=== PATIENT | female | born 1955 | race Caucasian/White ===

== ENCOUNTER 2019-07-28 08:48 | Emergency (ER) | payer BC ==
[2019-07-28 09:00] VITALS: BMI 30.4
--- NOTE | 2019-07-28 09:25 | PDOC ---
History of Present Illness - General Chief Complaint: Nasal Bleeding Stated Complaint: Nasal Bleeding Time Seen by Provider: 07/28/19 09:12 History Source: Patient Exam Limitations: No Limitations - History of Present Illness Initial Comments: 64 yo F w a hx of HTN and MVP who presents to the [facility] er with a nose bleed since 6 am this morning. cold for the past week. This morning she sneezed and blood started coming out of her left nostril. The patient states the blood has actively been dripping down her left nostril. She has been trying to hold pressure on her nose without much success. She states she has chronic sinus problems and frequently has nose bleeds but none as bad as today. She placed a small amount of afrin on a tissue in her nose which didn't help much. She stopped taking aspirin one month ago and states she does not take any blood thinners. Patient also endorses lightheadedness. She came to the ER to get her bleeding stopped and then she plans on heading straight to Dr. Tabor her ENT doctor. Denies fevers, nausea, vomiting or chills. ENT: Dr. Tabor PSH: None reported Allergies: Penicillins Social hx: Denies any snorting of drugs, other illicit drugs, alcohol or cigarettes. Past History - Past Medical History Allergies/Adverse Reactions: Allergies Allergy/AdvReac Type Severity Reaction Status Date / Time Penicillins Allergy Verified 07/28/19 08:55 Home Medications: Ambulatory Orders Atenolol [Tenormin] 50 mg PO BID 07/28/19 Atorvastatin Calcium [Lipitor] 10 mg PO HS 07/28/19 Levothyroxine [Synthroid -] 125 mcg PO DAILY 07/28/19 Lisinopril [Prinivil] 10 mg PO DAILY 07/28/19 - Psycho Social/Smoking Cessation Hx Smoking History: Never smoked Review of Systems - Review of Systems Able to Perform ROS?: Yes Comments:: CONSTITUTIONAL: Absent: fever, no chills, no fatigue EYES: Absent: visual changes ENT: Present: Nose bleeding Absent: ear pain, no sore throat CARDIOVASCULAR: Absent: chest pain, no palpitations RESPIRATORY: Absent: cough, no SOB GI: Absent: abdominal pain, no nausea, no vomiting, no constipation, no diarrhea GENITOURINARY: Absent: dysuria, no frequency, no hematuria MUSKULOSKELETAL: Absent: back pain, no arthralgia, no myalgia SKIN: Absent: rash NEURO: Absent: headache *Physical Exam - Vital Signs Last Vital Signs Temp Pulse Resp BP Pulse Ox 97.9 F 73 20 140/82 99 07/28/19 08:58 07/28/19 08:58 07/28/19 08:58 07/28/19 08:58 07/28/19 08:58 - Physical Exam Comments: GENERAL: Well-appearing, well-nourished. No apparent distress. NOSE: The left nostril has a slow bleed in the anterior portion on the nasal septum HEET: Normocephalic, atraumatic. PERRL, EOM intact. CARDIOVASCULAR: Normal S1, S2. Regular rate and rhythm. PULMONARY: No evidence of respiratory distress. Lungs clear to auscultation bilaterally. No wheezing, rales or rhonchi. ABDOMEN: Soft, non-distended, non-tender. EXTREMITIES: Normal ROM in all four extremities. No gross deformities. SKIN: Warm, dry. No rash NEUROLOGICAL: No focal neurological deficits. ED Treatment Course - LABORATORY CBC & Chemistry Diagram: 07/28/19 10:00 07/28/19 10:00 Medical Decision Making - Medical Decision Making 64 yo F w a hx of HTN and MVP who presents to the [facility] er with a nose bleed since 6 am this morning. cold for the past week. This morning she sneezed and blood started coming out of her left nostril. The patient states the blood has actively been dripping down her left nostril. She has been trying to hold pressure on her nose without much success. She states she has chronic sinus problems and frequently has nose bleeds but none as bad as today. She placed a small amount of afrin on a tissue in her nose which didn't help much. She stopped taking aspirin one month ago and states she does not take any blood thinners. Patient also endorses lightheadedness. She came to the ER to get her bleeding stopped and then she plans on heading straight to Dr. Tabor her ENT doctor. Vital Signs Temp Pulse Resp BP Pulse Ox 97.3 F L 63 20 122/89 98 07/28/19 10:09 07/28/19 10:09 07/28/19 08:58 07/28/19 10:09 10/04/19 10:09 DDx IBNLT: Nasal bleed - anterior vs posterior, anemia, platelet dysfunction, electrolyte/metabolic disturbance Plan: Labs, anterior packing, nasal pressure, afrin, re-assess. Labs: Patient is not anemic and has normal platelet count - Elevated BUN, giving patient a large jug of water to drink Re-assessment: Afrin applied and bleeding stopped. Dispo: ENT FU today with Dr. Tabor - Patient has an ENT appointment scheduled with Dr. Leander thurston at 1:40 pm Discharge - Discharge Information Problems reviewed: Yes Clinical Impression/Diagnosis: Nosebleed Condition: Improved Disposition: HOME - Admission No - Follow up/Referral Referrals: Katlyn Church [Primary Care Provider] - Eze Tabor MD [Staff Physician] - - Patient Discharge Instructions Patient Printed Discharge Instructions: Nosebleeds (Alternative Therapy), DI for Nosebleed Additional Instructions: Please make sure to go to Dr. Leander hturston in the afternoon at your scheduled appointment at 1:40 pm. Come back to the ER if your bleeding starts again or you have any other new or worsening concerns. Print Language: FAROESE - Post Discharge Activity
[2019-07-28] MEDS ORDERED: OXYMETAZOLINE 0.05% NASAL SOLUTION 15 ML BOTTLE NS ONE (09:35)
[2019-07-28 10:13] LABS: BASO % 1.8 % (0-2.0); EOS % 2.7 % (0-4.5); HEMATOCRIT 33.2 % (32.4-45.2); HEMOGLOBIN 11.3 GM/dL (10.7-15.3); LYMPH % 19.3 % (8-40); MCH 27.4 pg (25.7-33.7); MCHC 33.9 g/dl (32.0-36.0); MEAN CELL VOLUME 80.8 fl (80-96); MEAN PLT VOLUME 7.1 fl (7.5-11.1); MONO % 7.2 % (3.8-10.2); PLATELET COUNT 272 K/MM3 (134-434); RBC 4.11 M/mm3 (3.60-5.2); RDW 14.6 % (11.6-15.6); WHITE BLOOD COUNT 6.5 K/mm3 (4.0-10.0)
[2019-07-28 10:26] LABS: INR 1.08 (0.83-1.09); PROTHROMBIN TIME (PATIENT) 12.8 SEC (9.7-13.0)
[2019-07-28 10:42] LABS: ALBUMIN 3.6 g/dl (3.4-5.0); BILIRUBIN,TOTAL 0.3 mg/dL (0.2-1); BLOOD UREA NITROGEN 22.1 mg/dL (7-18); CALCIUM 8.8 mg/dL (8.5-10.1); CREATININE 0.9 mg/dL (0.55-1.3); TOT PROT 6.7 g/dl (6.4-8.2)
[2019-07-28 11:31] VITALS: BP 112/72; PULSE 69; TEMP 97.9
--- NOTE | 2019-07-28 11:49 | PDOC ---
Attending Attestation - Resident Resident Name: Gagan Gale - ED Attending Attestation I have performed the following: I have examined & evaluated the patient, The case was reviewed & discussed with the resident, I agree w/resident's findings & plan, Exceptions are as noted - HPI HPI: 07/28/19 11:50 64 yo F with h/o requent epistaxis, followed by dr Tabor here with left sided nose bleed started at 6 am. has been bleeding since. not feeling lightheaded or dizzy. no cp no sob. has been applying pressure, and used small amount of afrin no relief. no h/o bleeding disorders. - Physicial Exam PE: 07/28/19 11:52 awake alert lungs clear bilat heart rrr no mrg abd soft nt nd left nare . active bleeding nasal septum. oozing. - Medical Decision Making 07/28/19 11:53 64 yo F wit nose bleed, left nare. applied pressure and afrin. resolved. pt dc will fu with Dr Tabor today.
== END 2019-07-28 11:31 | disposition home or self-care (01) ==
LOC: JER 08:48
PROC: 2Y41X5Z Packing of Nasal Region using Packing Material (ICD-10-PCS; principal; 2019-07-28)
DX: R04.0 Epistaxis (principal); I10 Essential (primary) hypertension; I34.1 Nonrheumatic mitral (valve) prolapse; Z88.0 Allergy status to penicillin
CPT/HCPCS: 36415; 80053; 85025; 85610; 85730; 99282-25